=== PATIENT | female | born 1925 | race Caucasian/White ===

== ENCOUNTER 2016-03-16 09:13 | Emergency (ER) | payer MEDICARE ==
[2016-03-16] MEDS ORDERED: Zofran 4 MG/2 ML VIAL ONE (09:36)
[2016-03-16] MEDS ORDERED: Zofran 4 MG/2 ML VIAL IV ONE (09:36)
[2016-03-16] MEDS ORDERED: Coreg 3.125 MG PO ONE (09:41)
[2016-03-16] MEDS ORDERED: Zestril 5 MG PO ONE (09:41)
[2016-03-16 09:45] VITALS: O2SAT 92
--- NOTE | 2016-03-16 09:45 | ERPHSYRPT ---
- History of Present Illness Time Seen by Provider: 03/16/16 09:40 Source: patient, family Exam Limitations: no limitations Patient Subjective Stated Complaint: pt states she fell backwards today at her home. pt states she became dizzy and vomited x1. pt states she did not become dizzy before the fall. pt c/o pain to her head. denies any other complaints. Triage Nursing Assessment: pt pink, warm, dry. pt able to answer all questions. laceration noted to posterior head. bleeding controlled with fluff roll. pupils perrl. pt alert and oriented x3. no other injuries noted. pt able to move from wheelchair to bed with help. Physician History: pt states she fell backwards today at her home. pt states she became dizzy and vomited x1. pt states she did not become dizzy before the fall. pt c/o pain to her head. denies any other complaints. Occurred: just prior to arrival Reason for Fall: lost balance Injuries/Pain Location: head Loss of Consciousness: no loss of consciousness Severity of Pain-Max: none Severity of Pain-Current: none Modifying Factors: Improves With: nothing Associated Symptoms (Fall): vomiting Allergies/Adverse Reactions: oxytetracycline [From Terramycin] Allergy (Intermediate, Verified 03/16/16 09:25 ) Hives oxytetracycline HCl [From Terramycin] Allergy (Intermediate, Verified 03/16/16 09:25) Hives Home Medications: Aspirin 81 mg PO DAILY 04/28/14 [History] Levothyroxine Sodium 75 Mcg [Synthroid 75 Mcg] 100 mcg PO DAILY 04/28/14 [ History] Lisinopril [Zestril] 2.5 mg PO DAILY 04/28/14 [History] Carvedilol 3.125 mg [Coreg 3.125 MG] 3.125 mg PO DAILY 12/16/14 [History] Sertraline HCl [Zoloft] 25 mg PO DAILY 12/16/14 [History] Levofloxacin [Levaquin] 500 mg PO DAILY 03/16/16 [History] Prednisone 5 mg [Deltasone 5 mg] 10 mg PO DAILY 03/16/16 [History] Hx Tetanus, Diphtheria Vaccination/Date Given: Yes (unknown) Hx Influenza Vaccination/Date Given: Yes Hx Pneumococcal Vaccination/Date Given: Yes Immunizations Up to Date: Yes - Review of Systems Constitutional: No Fever, No Chills Eyes: No Symptoms Ears, Nose, & Throat: No Symptoms Respiratory: No Cough, No Dyspnea Cardiac: No Chest Pain, No Edema, No Syncope Abdominal/Gastrointestinal: Nausea, Vomiting, No Abdominal Pain, No Diarrhea Genitourinary Symptoms: No Dysuria Musculoskeletal: Fall, No Back Pain, No Neck Pain Skin: No Rash Neurological: No Dizziness, No Focal Weakness, No Sensory Changes Psychological: No Symptoms Endocrine: No Symptoms All Other Systems: Reviewed and Negative - Past Medical History Pertinent Past Medical History: Yes Cardiac History: Coronary Artery Disease, High Cholesterol, Hypertension Respiratory History: Pneumonia Endocrine Medical History: Other Psycho-Social History: Depression - Past Surgical History Past Surgical History: Yes Cardiac: Cardiac Catheterization, Cardiac Stent Gastrointestinal: Appendectomy Musculoskeletal: Joint Replacement, Orthopedic Surgery Other Surgical History: MULTIPLE EYE SURGERIES - Social History Smoking Status: Former smoker Exposure to second hand smoke: No Drug Use: none Patient Lives Alone: No - Nursing Vital Signs Nursing Vital Signs: Initial Vital Signs Temperature 97.5 F Temperature Source Oral Pulse Rate 69 Respiratory Rate 18 Blood Pressure [] 182/91 Pain Intensity 5 - Karla Coma Score Best Eye Response ([place]): (4) open spontaneously Best Verbal Response ([place]): (5) oriented Best Motor Response ([place]): (6) obeys commands Karla Total: 15 - Physical Exam General Appearance: no apparent distress, alert Head Injury: no evidence of injury Eye Exam: PERRL/EOMI ENT Exam: airway nml Neck Exam: normal inspection, No tenderness Respiratory/Chest Exam: normal breath sounds, No chest tenderness, No respiratory distress Cardiovascular Exam: normal heart sounds, regular rate/rhythm Gastrointestinal Exam: soft, No tenderness, No distention, No guarding, No ecchymosis Back Exam: normal inspection, No vertebral tenderness Extremity Exam: normal inspection, normal range of motion, pelvis stable, No deformities Neurologic Exam: alert, oriented x 3, cooperative, sensation nml, No motor deficits Skin Exam: normal color, warm, dry SpO2: 92 Oxygen Delivery: Room Air Procedures - Laceration/Wound Repair Occipital Wound Location: head Wound Length (cm): 4 Wound's Depth, Shape: superficial, irregular, flap, stellate Wound Explored: clean Irrigated: Yes Hibiclens Prep: Yes Anesthesia: local, 1% Lidocaine Volume Anesthetic (ccs): 3 Wound Debrided: moderate Wound Repaired With: Desmond (7 desmond) - Course Nursing assessment & vital signs reviewed: Yes - CT Exams Head CT Interpretation: Tele-radiologist Report (scalp hematoma) Ordered Tests: Active Orders 24 hr Category Date Time Status Prepare for Sutures STAT Care 03/16/16 09:56 Active Sutures STAT Care 03/16/16 09:56 Active HEAD WITHOUT CONTRAST [CT] Stat Exams 03/16/16 09:21 Completed Medication Summary Discontinued Medications Generic Name Dose Route Start Last Admin Trade Name Freq PRN Reason Stop Dose Admin Carvedilol 3.125 mg 03/16/16 09:41 03/16/16 09:54 Coreg 3.125 Mg PO 03/16/16 09:42 3.125 mg STAT ONE Administration Lisinopril 2.5 mg 03/16/16 09:41 03/16/16 09:54 Zestril 5 Mg PO 03/16/16 09:42 2.5 mg STAT ONE Administration Ondansetron HCl 4 mg 03/16/16 09:36 03/16/16 09:38 Zofran 4 Mg/2 Ml Vial IV 03/16/16 09:37 4 mg STAT ONE Administration Ondansetron HCl Confirm 03/16/16 09:36 Zofran 4 Mg/2 Ml Vial Administered 03/16/16 09:37 Dose 4 mg .ROUTE .STK-MED ONE - Progress Progress: improved Counseled pt/family regarding: diagnosis, need for follow-up, rad results - Departure Time of Disposition: 10:00 Departure Disposition: Home Clinical Impression: Head contusion Qualifiers: Encounter type: initial encounter Contusion of head detail: scalp Qualified Code(s): S00.03XA - Contusion of scalp, initial encounter Accidental fall Qualifiers: Encounter type: initial encounter Qualified Code(s): W19.XXXA - Unspecified fall, initial encounter Laceration of scalp without complication Qualifiers: Encounter type: initial encounter Qualified Code(s): S01.01XA - Laceration without foreign body of scalp, initial encounter Condition: Stable Critical Care Time: No Referrals: IVETH ALMEIDA [Primary Care Provider] - Instructions: Contusion, Prevent Falls, Laceration Repair -- Desmond
--- NOTE | 2016-03-16 09:46 | XRAY ---
Indication: Pain, nausea, and dizziness following fall. Multiple contiguous axial images obtained through the head without contrast. Comparison: None Age-appropriate global atrophy and mild periventricular degenerative micro-ischemia bilaterally. No acute intracranial hemorrhage, abnormal extra-axial fluid collection, or mass effect. Fourth ventricle is midline without hydrocephalus. Tiny right posterior scalp hematoma/soft tissue swelling. Bony calvarium intact. Visualized paranasal sinuses and mastoid air cells are pneumatized and clear. Impression: Tiny right posterior scalp hematoma/soft tissue swelling. Nonacute senile brain. CTDI 68.98
[2016-03-16 10:20] VITALS: BP 173/96; PULSE 72
== END 2016-03-16 10:26 | disposition home or self-care (01) ==
LOC: ED 09:13
PROC: 0HQ0XZZ Repair Scalp Skin, External Approach (ICD-10-PCS; principal; 2016-03-16)
DX: S00.03XA Contusion of scalp, initial encounter (principal); S01.01XA Laceration without foreign body of scalp, initial encounter; W01.0XXA Fall on same level from slipping, tripping and stumbling without subsequent striking against object, initial encounter; R42 Dizziness and giddiness; R51 Headache; R11.2 Nausea with vomiting, unspecified; I25.10 Atherosclerotic heart disease of native coronary artery without angina pectoris; I10 Essential (primary) hypertension; E78.00 Pure hypercholesterolemia, unspecified; Z79.899 Other long term (current) drug therapy
CPT/HCPCS: 12002; 70450; 96374; 99283; J2405